=== PATIENT | female | born 1975 | race Caucasian/White ===

== ENCOUNTER 2024-10-01 16:54 | Emergency (ER) | payer BC, SELFPAY ==
[2024-10-01 16:54] VITALS: BMI 45.8
[2024-10-01 16:56] VITALS: BP 151/111
[2024-10-01 17:22] LABS: % Basophils 0.3 % (0-2); % Eosinophils 3.2 % (0-6); % Immature Granulocytes 0.3 % (0-0.5); % Lymphocytes 22.2 % (20.5-51.1); % Monocytes 8.4 % (1.7-9.3); % Neutrophils 65.6 % (42.2-75.2); Absolute Eosinophils 0.2 10^3/uL (0-0.7); Absolute Lymphocytes 1.5 10^3/uL (1.2-3.4); Absolute Monocytes 0.6 10^3/uL (0.1-0.6); Absolute Neutrophils 4.3 10^3/uL (1.4-6.5); Hemoglobin 13.5 g/dL (12.0-16.0); Mean Corp Hgb Conc. 32.9 g/dL (33.0-37.0); Mean Corpuscular Hgb 30.2 pg (27.0-31.0); Mean Corpuscular Volume 91.7 fL (81.0-99.0); Mean Platelet Volume 9.1 fL (7.4-10.4); Nucleated Red Blood Cells % 0 %; Platelet Count 279 10^3/uL (130-400); Red Blood Cell Count 4.47 10^6/uL (4.20-5.40); Red Cell Dist. Width 12.9 % (11.5-14.5); White Blood Cell Count 6.5 10^3/uL (4.8-10.8)
[2024-10-01 17:24] LABS: Urine Albumin Trace (Neg - Trace); Urine Bilirubin Negative (Negative); Urine Character Clear (Clear); Urine Color Yellow; Urine Glucose Negative (Negative); Urine Ketone Trace (Negative); Urine Leukocyte Trace (Negative); Urine Nitrite Negative (Negative); Urine Occult Blood 3+ (Negative); Urine Specific Gravity 1.025 (<1.030); Urine Urobilinogen Negative (Neg - 1+)
[2024-10-01 17:28] LABS: Urine Mucus Moderate; Urine Squamous Cell >30 /LPF (Few)
[2024-10-01 17:29] LABS: Urine Bacteria Few (Negative)
[2024-10-01 17:43] LABS: ALT (SGPT) 103 U/L (0-35); AST (SGOT) 109 U/L (14-36); Albumin 4.6 g/dl (3.5-5.0); Alkaline Phosphatase 76 U/L (38-126); Blood Urea Nitrogen 14 mg/dl (7-17); Calcium 9.6 mg/dl (8.4-10.2); Carbon Dioxide 27 mmol/L (22-30); Chloride 100 mmol/L (98-107); Glucose 110 mg/dl (70-99); Lipase 341 U/L (23-300); Potassium 4.2 mmol/L (3.5-5.1); Sodium 135 mmol/L (135-145); Total Bilirubin 0.4 mg/dl (0.2-1.3); Total Protein 7.7 g/dl (6.3-8.2); eGFR > 60.00
[2024-10-01 18:18] VITALS: BP 154/93
--- NOTE | 2024-10-01 18:33 | ED.GENMED ---
History of Present Illness
General
Chief Complaint: Abdominal Symptoms
Source: patient
Exam Limitations: none
Time Seen by Provider: 10/01/24 17:58
History of Present Illness
History of Present Illness:
This is a 49 year old female that comes in with c/o not being able to urinate. States that about 4 hours ago she has had very little urine output. States that she feels like she can't urinate. States that 2 Saturdays ago she was constipated. Then
she had diarrhea and she went to see the PCP on the 18t. State that she was told that she had a sinus infection and was given Augmentin. States that she also started with pro-biotics. States that her stool is loose. States that she has pressure in
the lower abd like when she did IVF. States that her ovaries feel like they area heavy. States that she has been nauseated with the diarrhea. Denies any fever, chills, chest pain, SOB, vomiting, headache, dizziness, urinary burning.
Past History
Past History
ED Past Medical History: Arrthythmia (SVT), Asthma, GERD, HTN, Hypercholesterolemia, Hypothyroidism and Other (Hemochromatosis)
ED Past Surgical History: Gynecological (Uterine polyp removed, Paratubel cyst) and Other (Sinus surgery)
Social History
Tobacco: Non-smoker
Alcohol: Daily ([place])
Drug: None
Personal:
Living: with family
Review of Systems
Review of Systems
All Other Systems: ROS reviewed and negative except as documented in HPI and ROS
Constitutional: Reports no symptoms; Denies fever or chills
EENT: Reports no symptoms
Respiratory: Reports no symptoms; Denies cough or trouble breathing
Cardiac: Reports no symptoms; Denies chest pain
ABD/GI: Reports abdominal pain, nausea and diarrhea; Denies vomiting
: Reports difficulty voiding; Denies dysuria, frequency or urgency
Musculoskeletal: Reports no symptoms
Skin: Reports no symptoms
Neurological: Reports no symptoms; Denies dizzy or headache
Psychiatric: Reports no symptoms
Phy Exam
General Physical Exam
General Presentation: no apparent distress
General age: appears stated age
General Skin: warm and dry
General Habitus: obese
General Mental: alert
General Hydration: appears well hydrated
ENT Exam
ENT Exam: TM's normal, pharynx normal and neck supple
Eye Exam
Eye Exam: EOMI
Cardiovascular Exam
Cardiovascular Exam: regular rate/rhythm, no edema and normal peripheral pulses
Pulmonary Exam
Pulmonary Exam: lungs clear, no respiratory distress, no rales, chest non tender, no crackles, no rhonchi, no wheezing and no cough
Gastrointestinal Exam
Gastrointestinal Exam: normal bowel sounds, non tender, soft, no organomegaly, no pulsatile mass and non distended
Musculoskeletal Exam
Musculoskeletal Exam: full ROM and no edema
Skin Exam
Skin Exam: normal color, warm/dry, no rash and no petechia
Course
Orders/Labs/Results
Orders:
Orders
10/01/24 17:02
Electrocardiogram (*1) Urgent
Reason for Study: Abdominal Pain
EKG- Treatment ONCE
10/01/24 17:14
Complete Blood Count/With Diff Urgent
Comprehensive Metabolic Panel Urgent
Lipase Urgent
Urinalysis Reflex To Culture Urgent
Date Specimen was Collected: 10/01/24
Time Specimen was Collected: 17:02
Urine Microscopic Reflex Cult Urgent
10/01/24 18:32
CT Abd/pel Without Iv Or Oral Urgent
Comment:
Reason For Exam: Left sided pain
STOOL [C difficile Antigen & Toxins] Urgent
CLARIBEL Source: Feces/Stool
Specimen Description:
Stool Culture Urgent
CLARIBEL Source: Feces/Stool
Specimen Description:
Stool For WBC Urgent
CLARIBEL Source: Feces/Stool
Specimen Description:
0.9% Sodium Chloride 1000 ml [Nss] 1,000 ml IV BOLUS
Abnormal Lab Results
10/01/24
17:14
MCHC 32.9 L g/dL
(33.0-37.0)
Glucose 110 H mg/dl
(70-99)
AST 109 H U/L
(14-36)
ALT 103 H U/L
(0-35)
Lipase 341 H U/L
(23-300)
Urine Ketones Trace A
(Negative)
Ur Occult Blood Reflex 3+ A
(Negative)
Leukocyte Esterase Rfl Trace A
(Negative)
Urine RBC 7-10 A /HPF
(0-2)
Urine Bacteria (Reflex) Few A
(Negative)
10/01/24 17:14
10/01/24 17:14
Glucose nonfasting. AST/ALT elevation (patient states that this is normal for here as fatty liver), Lipase slightly elevated. Urine negative for infection.
Vital Signs
Initial and Last Documented VS:
Initial Vital Signs
Temp Pulse Resp BP Pulse Ox
97.9 F 92 16 151/111 98
10/01/24 16:56 10/01/24 16:56 10/01/24 16:56 10/01/24 16:56 10/01/24 16:56
Last Documented Vital Signs
Temp Pulse Resp BP Pulse Ox
97.9 F 91 22 154/93 98
10/01/24 16:56 10/01/24 20:23 10/01/24 20:23 10/01/24 18:18 10/01/24 20:23
MDM/Problems Addressed
Differential Diagnosis Includes:
Renal calculus, Cystitis
MDM/Problems Addressed:
This is a 49 year old female that comes in with c/o difficulty urination. States that this started about 4 hours ago and she feels like she has pressure and her ovaries feel sore.
Will check labs, give IV fluids, Urine and get CT scan.
Back into see patient. Explained that her CT shows that there is a dermoid cyst on the left. This is most likely causing some of her low back discomfort. Patient also states that she only had her Period for 2 days this last time. Explained that she
may be starting Menopause and will need to follow up with the [facility]. Tylenol or Ibuprofen for pain. Patient can also use a heating pad for comfort. Patent to return with any concerns.
Chronic conditions affecting care:
NA
Acute Exacerbation and/or Progression of Chronic Illness:
NA
*Radiology
Radiology exam reviewed: radiology read reviewed (CT-No findings to suggest urinary tract calculus or dilatation bilaterally. 1.8 cm lobulated fatty density within the soft tissues of the anterior left true pelvis which may represent a fatty ovarian
lesion of which a dermoid would be one of a few differential diagnostic possibilities. No intestinal) and other (CT cont- obstruction or free air. Mild hepatomegaly. )
*Pulse Oximetry
Patient hypoxic: no
*EKG
Interpreted by ED Provider?: Yes
Heart Rate: 94
Rate: normal
Rhythm: sinus
[place]: normal axis
Interval: normal interval
QRS Pattern: normal QRS
Ischemia: no ischemia
*Community Education Specialist Interpretation
Rate: Community Education Specialist- N/A
*Critical Care Note
Total Time (30-74mins, 75-104mins- exclusive of procedures): Not Applicable
ED Attending Note
-
Portions of this chart may have been created with voice recognition software.� Occasional wrong word or��sound alike� substitutions may have occurred due to the inherent limitations of voice recognition software.
Discharge Plan
Departure
Patient Disposition: Home (Routine Discharge)
Date of Disposition: 10/01/24
Time of Disposition: 22:17
Patient with high blood pressure during this ER visit?: Yes
Condition: Good
Covid-19: Not Applicable
Discharge Problem:
Ovarian cyst
Instructions: Ovarian cyst - ED discharge instructions, BLOOD PRESSURE
Prescriptions:
No Action
albuterol sulfate 2.5 mg /3 mL (0.083 %) solution for nebulization
2.5 mg inhalation Q6H PRN (Reason: shortness of breath or wheezing) Qty: 180 0RF
methylprednisolone [Medrol ([place])] 4 mg tablets,dose pack
See Rx Instructions .ROUTE .COMPLEX Qty: 21 0RF
Rx Instructions:
orally per package directions
Referrals:
Carrie Beasley CRNP [Family Provider] -
Activity Restrictions/Additional Instructions:
As discussed, your blood work shows that your liver enzymes are slightly elevated. Your urine is negative for infection but positive for blood. Please increase your water intake to 8-8oz glasses daily. Your CT shows that you have a dermoid ovarian
cyst on the left. This may be causing the low back discomfort. Please follow up with the [facility] OFF[facility]ER for further evaluation. You may use Tylenol 1000mg every 6 hours for pain and alternate with Ibuprofen 600mg every 6 hours with food for pain. You may
also use a heating pad for comfort. IF YOU HAVE INCREASED OR CHANGING PAIN OR YOU HAVE ANY OTHER CONCERNS PLEASE RETURN TO THE EMERGENCY ROOM.
Interventions
Interventions:
*Risk Screen - Suicide Last Done: 10/01/24 16:56
*Neglect/Abuse Screening Last Done: 10/01/24 16:56
ED- Fall Risk Assessment Last Done: 10/01/24 18:20
CK-Ezzbvk-Lcavuqqany Assessment Last Done: 10/01/24 18:20
Discharge Date and Time
Print Language: BARBADIAN
[2024-10-01] MEDS: NSS 1000 IV (20:07)
[2024-10-01 21:27] VITALS: BP 165/97
[2024-10-01 22:00] VITALS: BP 134/79
== END 2024-10-01 22:54 | disposition home or self-care (01) ==
LOC: EMR 16:54
PROVIDERS: Emergency Medicine; EMERGENCY PHYSICIAN Student in an Organized Health Care Education/Training Program; FAMILY PHYSICIAN Registered Nurse
DX: N83.209 Unspecified ovarian cyst, unspecified side (principal); I47.10 Supraventricular tachycardia, unspecified; J45.909 Unspecified asthma, uncomplicated; K21.9 Gastro-esophageal reflux disease without esophagitis; I10 Essential (primary) hypertension; E78.00 Pure hypercholesterolemia, unspecified; E03.9 Hypothyroidism, unspecified; E83.119 Hemochromatosis, unspecified
CPT/HCPCS: 99284; 96360; 74176; 80053; 81003; 81015; 83690; 85025; 93005